=== PATIENT | female | born 1955 | race Two or more races ===

== ENCOUNTER 2023-01-27 07:21 | Outpatient (CLI) | payer OTHER | END 2023-01-27 07:24 | disposition home or self-care (01) | LOC: NUCLEAR 07:21 | PROVIDERS: ATTEND Specialist | DX: I11.9 Hypertensive heart disease without heart failure (principal); I49.8 Other specified cardiac arrhythmias; I25.9 Chronic ischemic heart disease, unspecified | CPT/HCPCS: 78452; 93017; A9500 ==